=== PATIENT | female | born 1990 | race African-American/Black ===

== ENCOUNTER 2018-10-23 04:47 | Inpatient (IN) ==
[2018-10-23] MEDS ORDERED: ONDANSETRON 4 MG/2 ML VIAL IV PRN ×2 (05:18→16:35)
[2018-10-23] MEDS ORDERED: BUTORPHANOL 2 MG/ML VIAL IV PRN (05:18)
[2018-10-23] MEDS ORDERED: MEPERIDINE 50 MG/1 ML VIAL IV PRN (05:18)
[2018-10-23] MEDS ORDERED: OXYTOCIN/LR 20 UNIT/1,000 ML BAG IV SCH ×2 (05:30→08:00)
[2018-10-23 05:43] LABS: Basophils # 0.1 10*3/uL (0.0-0.2); Basophils % 0.7 % (0.0-0.8); Eosinophils # 0.1 10*3/uL (0.0-0.87); Eosinophils % 0.6 % (0.00-10.9); Hematocrit 36.3 VOL% (35.7-47.0); Hemoglobin 11.5 GM/DL (12.0-16.0); Immature Granulocytes % 7.9 %; Immature Granulocytes Absolute 0.98 #; Lymphocytes # 2.1 10*3/uL (1.4-4.0); Lymphocytes % 16.8 % (21.3-54.2); Mean Corpuscular HGB Conc 31.7 GM/DL (32-36); Mean Corpuscular Hemoglobin 29 PG (27-34); Mean Corpuscular Volume 90.3 FL (87-102); Mean Platelet Volume 10.9 FL (9.6-12.0); Monocytes # 1.2 10*3/uL (0.11-0.8); Monocytes % 9.9 % (1.7-12.7); Neutrophils % 64.1 % (38.7-73.9); Platelet Count 157 T/CUMM (130-400); Red Blood Count 4.02 MC/CUMM (3.8-5.5); White Blood Count 12.4 T/CUMM (4-12)
[2018-10-23] MEDS: LACTATED RINGERS 1,000 ML IV SCH ×2 (07:17→14:41)
[2018-10-23 07:32] LABS: Band Neutrophils 8 % (0-10); Eosinophils 3 % (0-10); Hypochromasia 1+; Lymphocytes 13 % (20-55); Myelocytes 6 %; Ovalocytes Slight; Platelet Estimate Normal; Segmented Neutrophils 67 % (50-85); Total Cells Counted 100
[2018-10-23] MEDS ORDERED: AMPICILLIN INJ 2,000 MG in SODIUM CHLORIDE 0.9% 100 ML IV ONE (09:11)
[2018-10-23] MEDS ORDERED: SODIUM CHLORIDE 0.9% 100 ML IV ONE (09:14)
[2018-10-23] MEDS ORDERED: AMPICILLIN 2,000 MG VIAL ONE (09:14)
[2018-10-23] MEDS ORDERED: AMPICILLIN INJ 1,000 MG in SODIUM CHLORIDE 0.9% 100 ML IV SCH (13:00)
[2018-10-23] MEDS ORDERED: LIDOCAINE 1% 50 ML VIAL ONE (15:59)
[2018-10-23] MEDS ORDERED: BISACODYL 10 MG SUPP RECTAL PRN (16:35)
[2018-10-23] MEDS ORDERED: LANOLIN 50% CREAM 0.3 OZ TUBE TOP PRN (16:35)
[2018-10-23] MEDS ORDERED: oxyCODONE/ACETAMINOPHEN 5-325 MG TABLET PO PRN (16:35)
[2018-10-23] MEDS ORDERED: ACETAMINOPHEN 325 MG TABLET PO PRN (16:35)
[2018-10-23] MEDS ORDERED: MEASLES/MUMPS/RUBELLA VACCINE 0.5 ML VIAL SUBCUT ONE (16:35)
[2018-10-23] MEDS ORDERED: DIPH/TET/ACEL PERT BOOSTER VACCINE 0.5 ML VIAL IM ONE (16:35)
[2018-10-23] MEDS ORDERED: HYDROCORTISONE 2.5% RECTAL CREAM 30 GM TUBE TOP PRN (16:35)
[2018-10-23] MEDS ORDERED: OXYTOCIN/LR 20 UNIT/1,000 ML BAG IV ONE (16:35)
[2018-10-23] MEDS ORDERED: BENZOCAINE 20%/MENTHOL 0.5% SPRAY 56 GM CAN TOP PRN (16:35)
[2018-10-23] MEDS ORDERED: WITCH HAZEL PADS 100/JAR TOP PRN (16:35)
[2018-10-23] MEDS ORDERED: RHO(D) IMMUNE GLOBULIN 300 MCG SYRINGE IM ONE (16:35)
[2018-10-23] MEDS: oxyCODONE/ACETAMINOPHEN 5-325 MG TABLET PO PRN (21:55)
[2018-10-23] MEDS: DOCUSATE SODIUM 100 MG CAPSULE PO SCH (21:55)
[2018-10-23] MEDS: IBUPROFEN 800 MG TABLET PO PRN (21:57)
[2018-10-23] MEDS: FERROUS SULFATE 325 MG TABLET PO SCH (21:58)
[2018-10-24 06:35] LABS: Basophils # 0.1 10*3/uL (0.0-0.2); Basophils % 0.3 % (0.0-0.8); Eosinophils # 0.1 10*3/uL (0.0-0.87); Eosinophils % 0.3 % (0.00-10.9); Hematocrit 35.6 VOL% (35.7-47.0); Hemoglobin 11.3 GM/DL (12.0-16.0); Immature Granulocytes % 3.5 %; Immature Granulocytes Absolute 0.58 #; Lymphocytes # 2.1 10*3/uL (1.4-4.0); Lymphocytes % 12.4 % (21.3-54.2); Mean Corpuscular HGB Conc 31.7 GM/DL (32-36); Mean Corpuscular Hemoglobin 29 PG (27-34); Mean Corpuscular Volume 89.9 FL (87-102); Mean Platelet Volume 10.9 FL (9.6-12.0); Monocytes # 1.5 10*3/uL (0.11-0.8); Monocytes % 9.1 % (1.7-12.7); Neutrophils # 12.3 10*3/uL (1.4-7.4); Neutrophils % 74.4 % (38.7-73.9); Platelet Count 141 T/CUMM (130-400); Red Blood Count 3.96 MC/CUMM (3.8-5.5); Red Cell Distribution Width 13.9 % (9.3-17.3); White Blood Count 16.6 T/CUMM (4-12)
[2018-10-24 07:29] LABS: Band Neutrophils 7 % (0-10); Eosinophils 2 % (0-10); Lymphocytes 15 % (20-55); Metamyelocytes 1 %; Myelocytes 1 %; Segmented Neutrophils 66 % (50-85); Total Cells Counted 100
[2018-10-24 07:30] LABS: Hypochromasia 1+; Microcytosis Slight; Platelet Estimate Adequate
[2018-10-24] MEDS: DOCUSATE SODIUM 100 MG CAPSULE PO SCH ×2 (09:16→20:23)
[2018-10-24] MEDS: FERROUS SULFATE 325 MG TABLET PO SCH ×3 (09:16→20:23)
[2018-10-24] MEDS: MULTIVITAMIN (PRENATAL) TABLET PO SCH (09:16)
[2018-10-24] MEDS: IBUPROFEN 800 MG TABLET PO PRN ×2 (14:16→23:20)
[2018-10-24] MEDS: oxyCODONE/ACETAMINOPHEN 5-325 MG TABLET PO PRN (14:17)
[2018-10-25 08:01] VITALS: BP 131/85
[2018-10-25] MEDS: DOCUSATE SODIUM 100 MG CAPSULE PO SCH (08:48)
[2018-10-25] MEDS: MULTIVITAMIN (PRENATAL) TABLET PO SCH (08:48)
[2018-10-25] MEDS: FERROUS SULFATE 325 MG TABLET PO SCH (09:49)
== END 2018-10-25 11:25 | disposition home or self-care (01) | DRG 560 ==
LOC: N.LDOUT 04:47 → N.LD 04:49 → N.OB 20:18
PROVIDERS: ADMIT Obstetrics & Gynecology; ATTEND Obstetrics & Gynecology